=== PATIENT | male | born 1960 | race Caucasian/White ===

== ENCOUNTER 2021-02-14 14:09 | Inpatient (IN) | payer MEDICAID ==
[~2021-02-14] VITALS: Ht 172.7 cm; Wt 72.7 kg
[~2021-02-14 14:09] MED LIST: NO HOME MEDS
[2021-02-14 15:28] LABS: BASOPHILS % (AUTO) 0.8 % (0-1); EOSINOPHILS % (AUTO) 0.1 % (0-6); HEMATOCRIT 46.3 % (42.0-52.0); HEMOGLOBIN 15.6 g/dl (14.0-17.9); LYMPHOCYTES # (AUTO) 0.7 X10'3 (1.1-4.8); LYMPHOCYTES % (AUTO) 11.4 % (21-51); MEAN CORPUSCULAR HEMOGLOBIN 29.1 PG (27.0-31.0); MEAN CORPUSCULAR HGB CONC 33.6 g/dL (33.0-36.5); MEAN CORPUSCULAR VOLUME 86.7 FL (78-98); MEAN PLATELET VOLUME 8.2 FL (7.4-10.4); MONOCYTES # (AUTO) 0.5 X10'3 (0-0.9); MONOCYTES % (AUTO) 8.7 % (2-12); NEUTROPHILS # (AUTO) 4.6 X10'3 (1.8-7.7); PLATELET COUNT 240 X10'3 (140-440); RED BLOOD COUNT 5.34 X10'6 (4.70-6.10); RED CELL DISTRIBUTION WIDTH 14.5 % (11.5-14.5); WHITE BLOOD COUNT 5.8 X10'3 (4.5-11.0)
[2021-02-14 15:40] LABS: ALANINE AMINOTRANSFERASE 159 U/L (12-78); ALBUMIN 3.2 G/DL (3.4-5.0); ALBUMIN/GLOBULIN RATIO 0.7 (1.1-1.5); ALKALINE PHOSPHATASE 176 IU/L (46-116); ANION GAP 10 (8-16); ASPARTATE AMINO TRANSFERASE 97 U/L (10-37); BILIRUBIN,TOTAL 0.4 MG/DL (0.1-1.0); BLOOD UREA NITROGEN 9 MG/DL (7-18); BUN/CREATININE RATIO 8.4 (5.4-32.0); CALCIUM 8.4 MG/DL (8.5-10.1); CHLORIDE 94 MMOL/L (99-107); CREATININE 1.07 MG/DL (0.60-1.10); GLUCOSE 97 MG/DL (70-104); MAGNESIUM 1.5 MG/DL (1.5-2.4); POTASSIUM 3.7 MMOL/L (3.5-5.1); SODIUM 133 MMOL/L (135-145); TOTAL CARBON DIOXIDE 29.3 MMOL/L (24-32); TOTAL PROTEIN 7.9 G/DL (6.4-8.2); eGFR 71 ML/MIN
[2021-02-14 15:45] LABS: CLARITY,URINE CLEAR (Clear); COLOR,URINE YELLOW (Yellow); GLUCOSE, URINE NEGATIVE (Neg); KETONES,URINE NEGATIVE (Neg); LEUKOCYTE ESTERASE ,URINE NEGATIVE (Neg); NITRITES, URINE NEGATIVE (Neg); OCCULT BLOOD,URINE LARGE (Neg); PROTEIN,URINE 100 mg/dl (Neg); UROBILINOGEN,URINE >=8.0 E.U/dL (0.2-1.0)
[2021-02-14] MEDS ORDERED: iohexol 300mg/ml 100ml inj. ONE (15:47)
[2021-02-14 15:49] LABS: UA COLLECTION TYPE VOIDED
[2021-02-14 15:51] LABS: MUCUS STRANDS FEW /LPF (Neg); SQUAMOUS EPITHELIAL CELL,UR FEW /LPF (FEW)
[2021-02-14 15:52] LABS: BACTERIA,URINE FEW /HPF (Neg); HYALINE CASTS 0-3 /LPF (NEGATIVE); RBC,URINE 50-100 /HPF (0-2); WBC,URINE 0-4 /HPF (0-4)
[2021-02-14 15:53] LABS: TRANSITIONAL EPI CELLS,URINE FEW /HPF
[2021-02-14] MEDS ORDERED: ketorolac tromethamine 15mg/ml inj. IM ONE (15:55)
[2021-02-14 16:03] LABS: PARTIAL THROMBOPLASTIN TIME 32 SECONDS (22-32)
[2021-02-14] MEDS ORDERED: normal saline 1000ML IV soln IVB ONE (16:35)
[2021-02-14] MEDS ORDERED: piperacillin/tazo 3.375gm/50ml 50 ML IV ONE (17:00)
[2021-02-14 17:21] LABS: C-REACTIVE PROTEIN 13.74 MG/DL (0.0-0.5)
[2021-02-14] MEDS ORDERED: morphine 2 MG/ML inj. syringe IV PRN ×2 (17:30)
[2021-02-14] MEDS ORDERED: ondansetron/PF 4mg/2ml inj IV PRN (17:30)
[2021-02-14] MEDS ORDERED: magnesium hydroxide 30ml (MOM) UD suspension PO PRN (17:30)
[2021-02-14] MEDS ORDERED: mag hydrox/Alum hydrox/simeth 30ml oral suspension PO PRN (17:30)
[2021-02-14 18:00] LABS: D-DIMER 2.27 MG/L FEU (0-0.50)
[2021-02-14 18:04] LABS: HEMOGLOBIN A1C 6.1 % (4.5-6.2)
[2021-02-14 18:39] LABS: URINE AMPHETAMINE SCREEN POSITIVE (Neg); URINE BARBITUATE SCREEN NEGATIVE (Neg); URINE BENZODIAZEPINES SCREEN NEGATIVE (Neg); URINE CANNABINOID SCREEN POSITIVE (Neg); URINE COCAINE SCREEN NEGATIVE (Neg); URINE METHADONE SCREEN NEGATIVE (Neg); URINE OPIATE SCREEN NEGATIVE (Neg); URINE PHENCYCLIDINE SCREEN NEGATIVE (Neg)
--- NOTE | 2021-02-14 21:30 | NUR ---
received report from ED, was able to ask questions and review plan of care
[2021-02-14 22:00] VITALS: BP 128/76
[2021-02-14] MEDS: enoxaparin 80mg/0.8ml syringe SUBCUT SCH (22:15)
--- NOTE | 2021-02-15 | NUR ---
Received phone call from Dr. Stewart regarding new admit pt in room 3022. He gave me orders for IV compazine 10mg Q6 x2 doses as well as an order for an urgent LP in am. I paged Dr. Bangura and received a call back from her by [phone]. She approved Dr. Sifuentes orders after I updated her on pts condition and status.
[2021-02-15] MEDS: proCHLORperazine 10 MG/2 ml inj IV SCH ×2 (00:19→05:44)
[2021-02-15 02:00] VITALS: BP 134/82
[2021-02-15 04:48] LABS: BASOPHILS % (AUTO) 0.6 % (0-1); EOSINOPHILS % (AUTO) 0 % (0-6); HEMATOCRIT 41.3 % (42.0-52.0); HEMOGLOBIN 13.8 g/dl (14.0-17.9); LYMPHOCYTES % (AUTO) 16.2 % (21-51); MEAN CORPUSCULAR HEMOGLOBIN 28.8 PG (27.0-31.0); MEAN CORPUSCULAR HGB CONC 33.4 g/dL (33.0-36.5); MEAN CORPUSCULAR VOLUME 86.3 FL (78-98); MEAN PLATELET VOLUME 8.5 FL (7.4-10.4); MONOCYTES # (AUTO) 0.6 X10'3 (0-0.9); MONOCYTES % (AUTO) 9.5 % (2-12); NEUTROPHILS # (AUTO) 4.6 X10'3 (1.8-7.7); NEUTROPHILS % (AUTO) 73.7 % (42-75); PLATELET COUNT 193 X10'3 (140-440); RED BLOOD COUNT 4.78 X10'6 (4.70-6.10); RED CELL DISTRIBUTION WIDTH 14.2 % (11.5-14.5); WHITE BLOOD COUNT 6.2 X10'3 (4.5-11.0)
[2021-02-15 05:03] LABS: ALBUMIN 2.5 G/DL (3.4-5.0); ANION GAP 11 (8-16); BLOOD UREA NITROGEN 11 MG/DL (7-18); CALCIUM 7.9 MG/DL (8.5-10.1); CHLORIDE 96 MMOL/L (99-107); CHOL/HDL RATIO 7.4 (0.00-4.99); CHOLESTEROL 134 MG/DL (0-200); CREATININE 0.92 MG/DL (0.60-1.10); GLUCOSE 103 MG/DL (70-104); HDL CHOLESTEROL 18 MG/DL (35-60); LDL CHOLESTEROL 88 MG/DL (50-100); POTASSIUM 3.7 MMOL/L (3.5-5.1); SODIUM 130 MMOL/L (135-145); TOTAL CARBON DIOXIDE 23.5 MMOL/L (24-32); TRIGLYCERIDES 168 MG/DL (20-135); eGFR 84 ML/MIN
[2021-02-15] MEDS ORDERED: acetaminophen 325mg tablet PO PRN (05:25)
--- NOTE | 2021-02-15 06:21 | NUR ---
Problems reprioritized. Patient report given, questions answered & plan of care reviewed with Elba CHAPPELL.
--- NOTE | 2021-02-15 06:26 | NUR ---
Patient in room PCU 3022. I have received report from Renata CHAPPELL and had the opportunity to ask questions and assume patient care.
[2021-02-15 07:00] VITALS: BP 126/78
[2021-02-15] MEDS: aspirin 81mg tablet.DR PO SCH (07:31)
[2021-02-15] MEDS: enoxaparin 80mg/0.8ml syringe SUBCUT SCH (08:00)
[2021-02-15] MEDS: levoTHYROXINE 25mcg tablet PO SCH (08:56)
[2021-02-15] MEDS ORDERED: aminophylline 250mg/10ml inj. IV PRN (10:10)
[2021-02-15] MEDS ORDERED: metoprolol tartrate 1mg/ml inj IV PRN (10:10)
[2021-02-15] MEDS ORDERED: regadenoson 0.4mg/5ml syringe IV PRN (10:10)
[2021-02-15] MEDS ORDERED: nitroGLYCERIN 0.4mg SUBLingual tab SL PRN (10:10)
[2021-02-15 11:00] VITALS: BP 117/61
[2021-02-15 15:00] VITALS: BP 112/57
--- NOTE | 2021-02-15 15:12 | NUR ---
PAGER ID: [phone] MESSAGE: Ze [id number]. Lab needs the MD to put in order for the spinal fluid, whatever tests you want done on it iain they have had the fluid for an hour. Elba [id number]
[2021-02-15 15:36] LABS: APPEARANCE,CSF CLEAR; CSF RBC 1 /CU MM (0); CSF SUPERNATANT COLOR COLORLESS; CSF VOLUME 10.5 ML; CSF WBC CT 3 /CU MM (0-5); TUBE# COUNTED 4
[2021-02-15 15:49] LABS: GLUCOSE,CSF 57 MG/DL (40-75); TOTAL PROTEIN,CSF 50 MG/DL (15-45)
--- NOTE | 2021-02-15 17:04 | NUR ---
[facility] documentation: I have reviewed and agree with interventions, assessments performed and documented by Lo CHAPPELL. [facility] Medication Administration: For this medication-pass time frame, medication were reviewed, dispensed, administered and documented per hospital policy by Lo CHAPPELL.
[2021-02-15 18:00] VITALS: BP 126/68
--- NOTE | 2021-02-15 18:14 | NUR ---
Problems reprioritized. Patient report given, questions answered & plan of care reviewed with Renata CHAPPELL.
--- NOTE | 2021-02-15 18:17 | NUR ---
Problems reprioritized. Patient report given, questions answered & plan of care reviewed with Renata CHAPPELL.
--- NOTE | 2021-02-15 18:30 | NUR ---
Patient in room PCU 3022. I have received report from Elba CHAPPELL and had the opportunity to ask questions and assume patient care.
[2021-02-15] MEDS ORDERED: ibuprofen tablet 400 MG TABLET PO ONE (21:00)
[2021-02-15 22:00] VITALS: BP 126/64
[2021-02-16] VITALS (10 sets, daily range): BP systolic 86–117; BP diastolic 40–63
[2021-02-16] MEDS: levoTHYROXINE 25mcg tablet PO SCH (08:39)
[2021-02-16] MEDS: aspirin 81mg tablet.DR PO SCH (08:39)
--- NOTE | 2021-02-16 11:06 | NUR ---
PAGER ID: [phone] MESSAGE: [id number] Willam. Patient back from [facility].. No results yet. [phone] Charline
[2021-02-16] MEDS ORDERED: baclofen 10mg tablet PO ONE (11:20)
--- NOTE | 2021-02-16 13:08 | NUR ---
Page Sent to Dr. Herring PAGER ID: [phone] MESSAGE: [id number] Willam. Ceci negative no evidence of ischemia or infarct. [id number] Charline (75 character message out of a maximum of 240)
[2021-02-16 13:31] LABS: HBSAG SCREEN Negative (Negative); HEPATITIS C ANTIBODY <0.1 s/co ratio (0.0-0.9)
[2021-02-16] MEDS ORDERED: LEVO25TA7 PO (14:41)
--- NOTE | 2021-02-16 16:13 | NUR ---
Patient is dc to home and drove himself. PIV was removed with cannula intact. Patient belongings were sent with him. RX was printed and handed to the pt. DC instructions were reviewed with the patient and he verbalized understanding. Warning s/s were reviewed with the patient and he verbalized when he should seek medical attention. Patient was advised to quit smoking an d doing meth. He was educated on their ill effects. Patient alert, oriented, and appropriate at time of dc.
== END 2021-02-16 15:19 | disposition home or self-care (01) | DRG 427 ==
LOC: ER 14:09 → ED HOLD 17:30 → PCU 3S 21:12
PROVIDERS: ADMIT Internal Medicine; ATTEND Internal Medicine
PROC: B2261ZZ Computerized Tomography (CT Scan) of Right and Left Heart using Low Osmolar Contrast (ICD-10-PCS; principal; 2021-02-14)
DX: E03.9 Hypothyroidism, unspecified (principal); F12.90 Cannabis use, unspecified, uncomplicated; K59.00 Constipation, unspecified; Z88.0 Allergy status to penicillin; F17.210 Nicotine dependence, cigarettes, uncomplicated; R74.01 Elevation of levels of liver transaminase levels; R77.8 Other specified abnormalities of plasma proteins; Z88.8 Allergy status to other drugs, medicaments and biological substances; Z87.11 Personal history of peptic ulcer disease; R94.6 Abnormal results of thyroid function studies; R31.9 Hematuria, unspecified; R06.01 Orthopnea; R51.9 Headache, unspecified; F15.90 Other stimulant use, unspecified, uncomplicated; M43.6 Torticollis; N20.0 Calculus of kidney; Z20.822 Contact with and (suspected) exposure to COVID-19
CPT/HCPCS: 36415; 62328; 70450; 71045; 71260; 74176; 76700; 77003; 78452; 80048; 80053; 80061; 80305; 81001; 82945; 83036; 83605; 83735; 83880; 84145; 84157; 84439; 84443; 84484; 85025; 85379; 85610; 85651; 85730; 86140; 86803; 87015; 87040; 87070; 87081; 87340; 87502; 87503; 87635; 89051; 93005; 93017; 93306; 93308; 94760; 96360; 96372; 99285; A9500; C1769; C9803; G0378; J0780; J1650; J1885; J2270; J2785; J7030; Q9967